=== PATIENT | female | born 1940 | race Hispanic/Latino ===

== ENCOUNTER 2016-05-04 11:25 | Day surgery (SDC) | payer MEDICARE ==
[~2016-05-04 11:25] MED LIST: AK-Dilate OD ONE; IOPIDINE OD ONE; MYDRIACYL OD ONE
[2016-05-04] MEDS ORDERED: AK-Dilate OD ONE (11:58)
[2016-05-04] MEDS ORDERED: MYDRIACYL OD ONE (11:58)
[2016-05-04] MEDS ORDERED: IOPIDINE OD ONE ×2 (11:58→12:44)
[2016-05-04 12:44] VITALS: BP 110/60
== END 2016-05-04 12:45 | disposition home or self-care (01) ==
LOC: OR 11:25
PROVIDERS: ATTEND Ophthalmology
DX: H26.491 Other secondary cataract, right eye (principal)

== ENCOUNTER 2016-09-10 10:17 | Outpatient (CLI) | payer MEDICARE ==
--- NOTE | 2016-09-10 14:50 | Mammography Report ---
BONE DEXA:09/10/16 10:17:00 CLINICAL: Postmenopausal. No comparison. TECHNIQUE: Two site bone DEXA performed on an Hologic scanner. FINDINGS: The average BMD of the lumbar spine L1-L4 is 1.018g/cm squared with a T-score of -0.3 and a Z-score of +2.1. The average BMD of the left hip is 1.021g/cm squared with a T-score of +0.6 and a Z-score of +2.4. IMPRESSION: WHO classification: Normal with average fracture risk based on both spine and left hip measurements. RECOMMENDATION: Clinical correlation and routine screening. DEFINITIONS: BMD = Bone Mineral Density T-score = BMD related to mean peak bone mass of young adult (mean expressed in Standard Deviation) Z-score = Age matched BMD expressed in SD World Health Organization (WHO) Diagnostic Criteria Normal T-score > -1 SD Osteopenia T-score between -1 and -2.4 SD Osteoporosis T-score -2.5 SD or below NOTE: BMD is not the only risk factor for fracture. One should also consider factors such as the patient's age, risk of falling, previous osteoporotic fracture, family history of osteoporotic fractures, current smoker, and low body weight. Z-scores are not calculated if >80 years of age.
--- NOTE | 2016-09-10 16:05 | Mammography Report ---
BILATERAL DIGITAL SCREENING MAMMOGRAM with CAD: 09/10/16 10:17:00 CLINICAL: Routine screening. COMPARISON:09/06/15 FINDINGS: The breasts are heterogeneously dense, which may obscure small masses. No mass, architectural distortion or suspicious calcifications. IMPRESSION: No mammographic evidence of malignancy. BI-RADS CATEGORY: 1 - - Negative RECOMMENDATION: Routine mammographic screening in one year. COMMENT: Patient follow-up letters are generated by our [employer] application.
== END 2016-09-10 10:18 | disposition home or self-care (01) ==
LOC: SPVWC 10:17
PROVIDERS: ATTEND Internal Medicine
DX: Z12.31 Encounter for screening mammogram for malignant neoplasm of breast (principal); M81.0 Age-related osteoporosis without current pathological fracture; E78.00 Pure hypercholesterolemia, unspecified; I10 Essential (primary) hypertension; J45.909 Unspecified asthma, uncomplicated; F41.9 Anxiety disorder, unspecified; Z78.0 Asymptomatic menopausal state
CPT/HCPCS: 77080; G0202; 77067

== ENCOUNTER 2017-09-14 10:19 | Outpatient (CLI) | payer MEDICARE ==
--- NOTE | 2017-09-14 16:39 | Mammography Report ---
BILATERAL DIGITAL SCREENING MAMMOGRAM with CAD: 09/14/17 10:19:00 CLINICAL: Routine screening. COMPARISON:09/10/16 FINDINGS: The breasts are heterogeneously dense, which may obscure small masses. No mass, architectural distortion or suspicious calcifications. IMPRESSION: No mammographic evidence of malignancy. BI-RADS CATEGORY: 1 - - Negative RECOMMENDATION: Routine mammographic screening in one year. COMMENT: Patient follow-up letters are generated by our [employer] application.
== END 2017-09-14 10:20 | disposition home or self-care (01) ==
LOC: SPVWC 10:19
PROVIDERS: ATTEND Internal Medicine
DX: Z12.31 Encounter for screening mammogram for malignant neoplasm of breast (principal); I10 Essential (primary) hypertension; E78.00 Pure hypercholesterolemia, unspecified; J45.909 Unspecified asthma, uncomplicated; M19.90 Unspecified osteoarthritis, unspecified site; F41.9 Anxiety disorder, unspecified; Z88.6 Allergy status to analgesic agent; Z88.0 Allergy status to penicillin; Z88.1 Allergy status to other antibiotic agents
CPT/HCPCS: 77067

== ENCOUNTER 2018-09-15 09:47 | Outpatient (CLI) | payer MEDICARE ==
--- NOTE | 2018-09-15 11:26 | Mammography Report ---
DIGITAL SCREENING MAMMOGRAM WITH CAD, 09/15/2018 INDICATION: Routine screening mammography. TECHNIQUE: Digital bilateral 2D mammography was obtained in the craniocaudal and mediolateral obliq ue projections. This examination was interpreted with the benefit of Computer-Aided Detection analysi s. COMPARISON: 09/06/2015, 09/14/2017 FINDINGS: Breast Density: There are scattered areas of fibroglandular density. There is no evidence of dominant mass, suspicious calcifications or architectural distortion in eithe r breast. No interval change. IMPRESSION: No evidence of malignancy. BI-RADS Category 1: Negative. No mammographic evidence of malignancy. Recommend routine screening m ammography in one year. A "normal" or negative report should not discourage follow up or biopsy of a clinically significant f inding. A written summary of these findings will be mailed to the patient. The patient will be entered into a mammography reporting system which will generate a reminder letter for the patient's next appointmen t at the appropriate interval. The [employer] recommends yearly mammograms starting at age 40 and continuing as l fer as a woman is in good health. Breast MRI is recommended for women with an approximate 20-25% or greater lifetime risk of breast cancer, including women with a strong family history of breast or ova brit[place] cancer or who have been treated for Hodgkin's disease. Signer Name: Ewa Phoenix MD Signed: 09/15/2018 11:22 AM Workstation Name: [id number]
--- NOTE | 2018-09-15 11:29 | Mammography Report ---
DEXA BONE DENSITY SCAN INDICATION: OSTEOPOROSIS. COMPARISON: Prior DEXA scan, 09/10/2016 LUMBAR SPINE (L1-L4): Bone mineral density (BMD) is 0.980 g/cm2. T-score is -0.6 (standard deviations of Young Adult mean). Z-score is 1.9 (standard deviations of Age Matched mean). LEFT FEMORAL NECK: Bone mineral density (BMD) is 0.766 g/cm2. T-score is -0.7 (standard deviations of Young Adult mean). Z-score is 1.4 (standard deviations of Age Matched mean). IMPRESSION: 1. WHO Classification: Normal bone density. Fracture Risk: Not Increased. 2. Compared with the prior DEXA scan of 09/10/2016 there has been a 6.1% increase in the BMD of the lef t femoral neck, and a 3.7% decrease in the BMD of the lumbar spine. Signer Name: Ewa Phoenix MD Signed: 09/15/2018 11:25 AM Workstation Name: [id number]
== END 2018-09-15 09:48 | disposition home or self-care (01) ==
LOC: SPVWC 09:47
PROVIDERS: ATTEND Internal Medicine
DX: Z12.31 Encounter for screening mammogram for malignant neoplasm of breast (principal); M81.0 Age-related osteoporosis without current pathological fracture
CPT/HCPCS: 77067; 77080

== ENCOUNTER 2019-09-20 09:58 | Outpatient (CLI) | payer MEDICARE ==
--- NOTE | 2019-09-21 09:12 | Mammography Report ---
DIGITAL SCREENING MAMMOGRAM WITH CAD, 09/20/2019 INDICATION: Routine screening mammography. TECHNIQUE: Digital bilateral 2D mammography was obtained in the craniocaudal and mediolateral obliq ue projections. This examination was interpreted with the benefit of Computer-Aided Detection analysi s. COMPARISON: 09/14/2017, 09/15/2018 FINDINGS: Breast Density: There are scattered areas of fibroglandular density. There is no evidence of dominant mass, suspicious calcifications or architectural distortion in eithe r breast. No interval change. IMPRESSION: No evidence of malignancy. Follow up recommendation: Routine yearly BI-RADS Category 1: Negative. A "normal" or negative report should not discourage follow up or biopsy of a clinically significant f inding. A written summary of these findings will be mailed to the patient. The patient will be entered into a mammography reporting system which will generate a reminder letter for the patient's next appointmen t at the appropriate interval. The [employer] recommends yearly mammograms starting at age 40 and continuing as l fer as a woman is in good health. Breast MRI is recommended for women with an approximate 20-25% or greater lifetime risk of breast cancer, including women with a strong family history of breast or ova [place] cancer or who have been treated for Hodgkin's disease. Signer Name: Ewa Phoenix MD Signed: 09/21/2019 9:07 AM Workstation Name: [id number]
== END 2019-09-20 09:59 | disposition home or self-care (01) ==
LOC: SPVWC 09:58
PROVIDERS: ATTEND Internal Medicine
DX: Z12.31 Encounter for screening mammogram for malignant neoplasm of breast (principal); N64.89 Other specified disorders of breast
CPT/HCPCS: 77067

== ENCOUNTER 2020-09-24 10:33 | Outpatient (CLI) | payer MEDICARE ==
--- NOTE | 2020-09-24 14:48 | Mammography Report ---
DIGITAL SCREENING MAMMOGRAM WITH CAD, 09/24/2020 CLINICAL INFORMATION / INDICATION: Routine screening TECHNIQUE: Digital bilateral 2D mammography was obtained in the craniocaudal and mediolateral obliqu e projections. This examination was interpreted with the benefit of Computer-Aided Detection analysis . COMPARISON: 09/20/2019 FINDINGS: Breast Density: The breasts are heterogeneously dense, which may obscure small masses. No dominant mass, suspicious calcifications, or architectural distortion in either breast. IMPRESSION: No mammographic evidence of malignancy. Follow up recommendation: Routine yearly BI-RADS Category 1: Negative. A "normal" or negative report should not discourage follow up or biopsy of a clinically significant f inding. A written summary of these findings will be mailed to the patient. The patient will be entered into a mammography reporting system which will generate a reminder letter for the patient's next appointmen t at the appropriate interval. The [employer] recommends yearly mammograms starting at age 40 and continuing as l fer as a woman is in good health. Breast MRI is recommended for women with an approximate 20-25% or greater lifetime risk of breast cancer, including women with a strong family history of breast or ova [place] cancer or who have been treated for Hodgkin's disease. Signer Name: Dion Urrutia MD Signed: 09/24/2020 2:44 PM Workstation Name: [id number]
== END 2020-09-24 10:34 | disposition home or self-care (01) ==
LOC: SPVWC 10:33
PROVIDERS: ATTEND Internal Medicine
DX: Z12.31 Encounter for screening mammogram for malignant neoplasm of breast (principal)
CPT/HCPCS: 77067

== ENCOUNTER 2021-09-30 10:22 | Outpatient (CLI) | payer MEDICARE ==
--- NOTE | 2021-10-02 16:05 | Mammography Report ---
DIGITAL SCREENING MAMMOGRAM WITH CAD, 09/30/2021 CLINICAL INFORMATION / INDICATION: Routine screening mammography. TECHNIQUE: Digital bilateral 2D mammography was obtained in the craniocaudal and mediolateral obliqu e projections. This examination was interpreted with the benefit of Computer-Aided Detection analysis . COMPARISON: 09/24/2020, 09/20/2019 FINDINGS: Breast Density: There are scattered areas of fibroglandular density. No dominant mass, suspicious calcifications, or architectural distortion in either breast. There has been no significant interval change. IMPRESSION: No mammographic evidence of malignancy. Follow up recommendation: Routine yearly screening mammogram. BI-RADS Category 1: NEGATIVE A "normal" or negative report should not discourage follow up or biopsy of a clinically significant f inding. A written summary of these findings will be mailed to the patient. The patient will be entered into a mammography reporting system which will generate a reminder letter for the patient's next appointmen t at the appropriate interval. The [employer] recommends yearly mammograms starting at age 40 and continuing as l fer as a woman is in good health. Breast MRI is recommended for women with an approximate 20-25% or greater lifetime risk of breast cancer, including women with a strong family history of breast or ova brit[place] cancer or who have been treated for Hodgkin's disease. Signer Name: Matt Araujo MD Signed: 10/02/2021 4:00 PM Workstation Name: [id number]
== END 2021-09-30 10:23 | disposition home or self-care (01) ==
LOC: SPVWC 10:22
PROVIDERS: ATTEND Internal Medicine
DX: Z12.31 Encounter for screening mammogram for malignant neoplasm of breast (principal)
CPT/HCPCS: 77067